=== PATIENT | male | born 2000 | race African-American/Black ===

== ENCOUNTER 2023-12-03 14:58 | Emergency (ER) | payer OTHER ==
[~2023-12-03] VITALS: Ht 185.4 cm; Wt 86.4 kg
[2023-12-03 15:26] LABS: COVID AG,FIA SOURCE NASAL SWAB
[2023-12-03] MEDS: ACETAMINOPHEN 500 MG TABLET PO ONE (15:51)
[2023-12-03] MEDS: IBUPROFEN 600 MG TABLET PO ONE (15:51)
[2023-12-03] MEDS: SODIUM CHLORIDE 0.9% 1,000 ML IV ONE (15:52)
[2023-12-03 15:55] LABS: INFLUENZA TYPE A NEGATIVE FOR TYPE A (NEGATIVE); INFLUENZA TYPE B NEGATIVE FOR TYPE B (NEGATIVE); SARS-COV2 (COVID) ANTIGEN,FIA Negative (Negative)
[2023-12-03 16:02] LABS: BASOPHILS % (AUTO) 0.1 % (0.0-2.0); EOSINOPHILS % (AUTO) 0.1 % (1.0-6.0); HEMATOCRIT 42.5 % (41-53); HEMOGLOBIN 13.8 g/dL (13.5-17.5); LYMPHOCYTES # (AUTO) 0.3 K/uL (1.0-4.8); LYMPHOCYTES % (AUTO) 3.4 % (22.0-44.0); MEAN CORPUSCULAR HEMOGLOBIN 28.4 pg (26.0-34.0); MEAN CORPUSCULAR HGB CONC 32.5 G/dL (31.0-37.0); MEAN CORPUSCULAR VOLUME 88 fL (80-100); MONOCYTES # (AUTO) 0.7 K/uL (0.1-1.0); MONOCYTES % (AUTO) 7.3 % (2.0-9.0); NEUTROPHILS # (AUTO) 8.9 K/uL (1.8-7.7); PLATELET COUNT (AUTO) 163 K/uL (150-450); RED BLOOD CELL COUNT(AUTO) 4.85 MIL/uL (4.50-5.90); RED CELL DISTRIBUTION WIDTH 14.3 % (11.5-14.5)
[2023-12-03 16:03] LABS: NEUTROPHILS % (AUTO) 89.1 % (40.0-70.0)
[2023-12-03 16:15] LABS: ANION GAP 9 mmol/L (8-16); CALCIUM, TOTAL 8.8 mg/dL (8.8-10.5); CARBON DIOXIDE 28 mmol/L (22-29); CHLORIDE 104 mmol/L (98-107); CREATININE 0.93 mg/dL (0.60-1.30); GLOMERULAR FILTR. RATE CALC > 60 mL/min (>60); GLUCOSE,RANDOM 127 mg/dL (70-110); POTASSIUM 3.5 mmol/L (3.5-5.1); SODIUM SERUM 141 mmol/L (136-145); UREA NITROGEN, BLOOD 11 mg/dL (7-18)
[2023-12-03 16:16] LABS: RBC MORPHOLOGY COMMENT NORMAL RBC MORPH
[2023-12-03 16:19] VITALS: BP 117/70; PULSE 110; RESP 20; TEMP 100.3
[2023-12-03] MEDS ORDERED: POLY119P3 PO (17:02)
[2023-12-03] MEDS ORDERED: IBUP-1554 PO (17:02)
[2023-12-03] MEDS ORDERED: HYDR30CR79 TP (17:02)
[2023-12-03] MEDS ORDERED: ACET-66 PO (17:02)
== END 2023-12-03 17:38 | disposition home or self-care (01) ==
LOC: EMS 15:00
DX: J06.9 Acute upper respiratory infection, unspecified (principal); R50.9 Fever, unspecified; K64.8 Other hemorrhoids; R09.89 Other specified symptoms and signs involving the circulatory and respiratory systems; Z20.822 Contact with and (suspected) exposure to COVID-19
CPT/HCPCS: 99283; 96360; 87426; 80048; 85025; 87804; 36415; J7030

== ENCOUNTER 2024-12-22 20:09 | Emergency (ER) | payer OTHER ==
[~2024-12-22] VITALS: Ht 182.9 cm; Wt 81.8 kg
[~2024-12-22 20:09] MED LIST: ACET-66 PO; HYDR30CR79 TP; IBUP-1554 PO; POLY119P3 PO
[2024-12-22 20:45] VITALS: BP 128/82; PULSE 93; RESP 14; TEMP 99; O2SAT 99
[2024-12-22] MEDS ORDERED: PENI500T2 PO (21:15)
[2024-12-22] MEDS: PENICILLIN V POTASSIUM 500 MG TABLET PO ONE (21:21)
== END 2024-12-22 21:30 | disposition home or self-care (01) ==
LOC: EMS 20:09
DX: J02.0 Streptococcal pharyngitis (principal); Z79.899 Other long term (current) drug therapy
CPT/HCPCS: 87430; 99283